=== PATIENT | female | born 1950 | race Caucasian/White ===

== ENCOUNTER → 2024-04-11 12:23 | Outpatient (CLI) | payer MEDICARE, SELFPAY ==
--- NOTE | 2024-04-11 12:27 | DI.MRI.S_ITS ---
PROCEDURE: MR LUMBAR SPINE WO CON INDICATIONS: LUMBAR STENOSIS / EVAL NEURO STRUCTURES TECHNIQUE: Noncontrast sagittal T1 spin echo and T2 fast echo, sagittal STIR, and T2 fast spin echo through the lumbar spine. In cases with scoliosis, additional coronal T2 fast spin echo may be performed. COMPARISON: None. FINDINGS: Image quality: Excellent. Alignment and Curvature: Mild dextrocurvature. Grade 1 anterolisthesis of L4 on L5 and L5 on S1. Grade 1 retrolisthesis of L1-L2 and L2 on L3. Bone Marrow: Multilevel degenerative endplate changes, most pronounced at L1-L2. Marrow is of normal overall signal. No acute vertebral body compression fractures. Spinal Cord: Conus medullaris terminates at the T12-L1 level. Visualized cord demonstrates normal signal and size. Paraspinous Soft Tissues: No paravertebral masses. T12-L1: Disc desiccation and mild disc height loss. Mild disc bulge. No central canal or neural foraminal stenosis. L1-L2: Disc desiccation is severe disc height loss. Diffuse disc bulge superimposed disc extrusion extending inferiorly. Mild central canal stenosis. Facet arthropathy. Moderate bilateral neural foraminal stenosis. L2-L3: Disc desiccation and moderate disc height loss. Diffuse disc bulge. Facet arthropathy. No significant central canal stenosis. Moderate left and mild right neural foraminal stenosis. L3-L4: Disc desiccation and moderate disc height loss. Diffuse disc bulge. Facet arthropathy and thickening of ligamentum flavum. Significant hypertrophy of the right facet joint. Severe central canal stenosis. Severe right and moderate left neural foraminal stenosis. L4-L5: Disc desiccation and mild disc height loss. Posterior disc bulge. Facet arthropathy. Epidural lipomatosis. Moderate central canal stenosis. Mild bilateral neural foraminal stenosis. L5-S1: Disc desiccation and diffuse disc bulge. Facet arthropathy. No significant central canal stenosis. Mild bilateral neural foraminal stenosis. IMPRESSION: 1. Multilevel degenerative changes of the lumbar spine as described above. 2. There is severe central canal stenosis at L3-L4. 3. Severe right neural foraminal stenosis at L3-L4. Multilevel mild and moderate neural foraminal stenosis at other levels. Dictated by: Pepe Lawrence M.D. on 04/11/2024 at 15:21 Approved by: Pepe Lawrence M.D. on 04/11/2024 at 15:25
== END ==
LOC: MRI 12:26
PROVIDERS: Referring Provider Orthopaedic Surgery Orthopaedic Surgery of the Spine; Visit Provider Orthopaedic Surgery Orthopaedic Surgery of the Spine
DX: M48.062 Spinal stenosis, lumbar region with neurogenic claudication (principal); M48.07 Spinal stenosis, lumbosacral region; M47.816 Spondylosis without myelopathy or radiculopathy, lumbar region; M47.817 Spondylosis without myelopathy or radiculopathy, lumbosacral region
CPT/HCPCS: 72148

== ENCOUNTER → 2024-05-15 13:09 | Outpatient (CLI) | payer MEDICARE, SELFPAY ==
--- NOTE | 2024-05-15 13:10 | DI.CT.S_ITS ---
PROCEDURE: CT LUMBAR SPINE WO CON INDICATIONS: SPINAL STENOSIS TECHNIQUE: Noncontrast 3 mm thick sections acquired from the T12 level to the sacrum. Sagittal and coronal reformats were constructed. For radiation dose reduction, the following was used: automated exposure control. COMPARISON: [facility], MR, MR LUMBAR SPINE WO CON, 04/11/2024, 12:35. FINDINGS: Image quality: Excellent. Bones: Grade 1 retrolisthesis of L1 on L2. Grade 1 anterolisthesis of L4 on L5. No acute vertebral body compression fractures. No suspicious lytic or blastic bony lesions. No pars defects. Bilateral sacroiliitis. Moderate, multilevel degenerative disc disease and facet arthrosis. Of note, there is severe spinal canal narrowing at L3-4. Findings have not significantly changed since 04/11/2024. Soft tissues: No retroperitoneal masses or hematomas. Visualized aorta is normal in caliber. IMPRESSION: Bilateral sacroiliitis, either degenerative or inflammatory. Multilevel degenerative disc disease and facet arthrosis, not significantly changed since comparison MRI. Dictated by: Eliezer Blum M.D. on 05/15/2024 at 16:19 Approved by: Eliezer Blum M.D. on 05/15/2024 at 16:25
== END ==
PROVIDERS: Referring Provider Orthopaedic Surgery Orthopaedic Surgery of the Spine; Visit Provider Orthopaedic Surgery Orthopaedic Surgery of the Spine
DX: M48.062 Spinal stenosis, lumbar region with neurogenic claudication (principal); M51.361 Other intervertebral disc degeneration, lumbar region with lower extremity pain only; M47.816 Spondylosis without myelopathy or radiculopathy, lumbar region; M43.16 Spondylolisthesis, lumbar region; M46.1 Sacroiliitis, not elsewhere classified
CPT/HCPCS: 72131

== ENCOUNTER 2024-05-31 07:26 | Day surgery (SDC) | payer MEDICARE, SELFPAY ==
[2024-05-22 12:10] VITALS: BMI 32.5
[2024-05-31] VITALS (19 sets, daily range): BP systolic 111–160; BP diastolic 57–108; PULSE 70–101; RESP 10–21; TEMP 36.4–36.7; O2SAT 9–99; BMI 33.5; BMI 34.0
--- NOTE | 2024-05-31 | PATH_ITS ---
[facility] Accession Number: [id number] No. of containers..01 Tissue . 01 Material submitted: . back - L3-4 RIGHT FACET CYST . 01 Diagnosis: L3-4 VERTEBRAL BODIES, RIGHT FACET CYST, EXCISION: Disc material and fibrocartilaginous tissue with severe degenerative changes, hemorrhage, and hemosiderin depostion. Features suggestive of hemorrhagic cyst, compatible with synovial cyst. Mineralized bone fragment and periosteal type fibroconnective tissue with degenerative changes and hemosiderin deposition. [facility] 06/06/2024 1153 Local . 01 Electronically signed: . Ann Bosch MD, Pathologist NPI- [id number] . 01 Gross description: . Received in formalin with two patient identifiers and L3-4 right facet cyst, are multiple aiken and orange-brown soft tissue fragments with no skin grossly identified aggregating to 2.4 x 2.0 x 0.6 cm. Filtered and submitted entirely in cassette A1. ([id number]) /LEXIE 06/01/2024 0925 Local . 01 Pathologist provided ICD-10: M71.30, M48.061 . 01 CPT . 255678 Specimen Comment: A courtesy copy of this report has been sent to [phone] Performed at: [address] [facility], [place], [place] [id number] MD Bernabe Fleming MD Phone: [phone]
--- NOTE | 2024-05-31 | DI.RAD.S_ITS ---
PROCEDURE: XR LUMBAR SPINE 2-3V INDICATIONS: TLIF L3-4,L4-5 TECHNIQUE: Fluoroscopic views of the lumbar spine were acquired. COMPARISON: None. FINDINGS: Intraoperative images demonstrate a L3-L4 and L4-L5 TLIF in progress. IMPRESSION: Intraoperative images of L3-L4 and L4-L5 TLIF. Please see the operative report for further details. Dictated by: Jose Francisco Bajwa M.D. on 05/31/2024 at 16:40 Approved by: Jose Francisco Bajwa M.D. on 05/31/2024 at 16:41
[2024-05-31] MEDS: ACETAMINOPHEN 325 MG TABLET 975 MG PO (07:56)
[2024-05-31] MEDS: LACTATED RINGERS 1,000 ML 42 ML IV ×2 (08:01→11:21)
[2024-05-31 08:24] LABS: Hematocrit 38.8 % (36-46); Hemoglobin 12.9 g/dL (12.0-16.0); Mean Corpuscular HGB Conc 33.2 % (30-36); Mean Corpuscular Hemoglobin 31.6 PG (26-34); Platelet Count 185 X10^3/uL (150-400); Red Blood Cell Count 4.09 X10^6/uL (4.0-5.2); Red Cell Distribution Width 13.6 % (11.6-14.8); White Blood Cell Count 8.1 X10^3/uL (4.5-11.0)
--- NOTE | 2024-05-31 08:38 | PM.PREOP ---
Pre-operative Note Interval Note History & Physical reviewed/Exam performed by Physician: Yes Changes to H&P: No
[2024-05-31] MEDS: CEFAZOLIN 2 GM/100 ML PREMIX 100 ML IV ×2 (08:50→17:06)
--- NOTE | 2024-05-31 09:11 | SUR.OPER ---
Prone on spine table, head in foam head support, padded chest and pelvic supports, gel pad at knees, lower legs supported by pillows; nipples, genitalia and toes free of pressure, arms secured on foam padded arm boards at <90 degrees abduction. Tape over blanket at thigh secured to table.
[2024-05-31] MEDS: BUPIVACAINE 0.25% (PF) 60 ML, EPINEPHrine 0.15 MG INJ (09:15)
[2024-05-31] MEDS: BUPIVACAINE LIPOSOME 266 MG/20 ML VIAL INJ (09:16)
--- NOTE | 2024-05-31 11:39 | PM.OP.1 ---
Operative Date/Time/Diagnoses Date of procedure: 05/31/24 Time of procedure: 08:45 Pre-op diagnosis: 1. L3-4, L4-5 spondylolisthesis 2. L3-4, L4-5 spinal stenosis with radiculopathy Post-op diagnosis: same Procedure & Clinicians Procedure: 1. L3-4, L4-5 Postero-lateral and posterior interbody fusion 2. L3-4, L4-5 interbody cage placement. 3. L3-4, L4-5 decompressive laminectomy with bilateral facetecomies 4. L3-4, L4-5 Posterior segmental instrumentation 5. [place] of bone marrow from iliac crest 6. Utilization of microsurgical technique and operating microscope 7. Utilization of robotic assisted navigation 8. Excisional biopsy of the right L3-4 synovial cyst Same procedure as scheduled: Yes Indications: Patient has been having chronic back pain and worsening lumbar radiculopathy. Patient was found to have L3-4 L4-5 anterolisthesis with spinal stenosis correlating with patient's symptoms. Patient failed multiple conservative management with worsening pain weakness and numbness in her lower extremity. Patient has been having difficulty performing activity of daily living. After discussing risks benefits of treatment options, patient elected proceed with surgery. Surgeon: Sunday Saul Molded Grid And Parts Inspector: Deepa Pritchard Click Yes if Unassisted: No Anesthesia Type: General Operative Notes Closure Type: primary Specimen(s): other (Right L3-4 facet cyst) Prosthetic devices, grafts, tissues, transplants, or devices: Globus CREO MIS screws, Rise cages Applied: catheter Estimated Blood Loss (mL): 50 Blood products transfused: none Procedure in detail: Patient was seen in the preoperative area. Risks and benefits of the surgery was discussed with the patient. Informed consent was obtained from the patient and placed in the chart. Surgical site was marked. Patient was taken to the operative room. General anesthesia was administered. Prophylactic antibiotic was given to the patient less than 30 min before the incision was made. Patient was placed into a prone position on the Robert table. Patient's back was then prepped and draped in the sterile fashion. Time-out was performed at this time. After patient was prepped and draped, patient's PSIS was palpated and marked bilaterally. Small 1 cm incision was made over the PSIS for placement of the reference probes. Two trocar was placed into the PSIS 1 on each side. The reference probe was attached to the trocar of the reference apparatus. At this time the C-arm imaging was used to confirm AP and lateral of L3, L4-L5 vertebrae and merged the C-arm imaging using the Taktio robotic navigation system with the CT of the lumbar spine. After successful merging was completed and confirmed, skin marker was used to marcy out the skin incision using the Taktio robotic arm. Bilateral incision was made at this time. Pre templated trajectory was used and guided using the Taktio robotic navigation system for bilateral L3 L4, L5 pedicle screw placement. This was done by using the robotic arm to guide the high-speed bur to make a cortical entry point. Next a drill was placed also using the robotic arm and guided using the navigation system drilling partially through bilateral L3, L4, L5 pedicles. Next L3, L4, L5 pedicle screws it was pre templated and measured was placed onto the power local az truck driver and inserted into the pedicles bilaterally. After all 6 screws were placed C-arm imaging was taken of both AP and lateral to confirm the placement. Excellent placement of the screws were confirmed and a matched precisely with the pre planned screw placement using the navigation system. MARs retractor was inserted using MoboTapivation guidence. Globus MARS retractors was placed inside the incision and docked onto the L3, L4 lamina. Using microsurgical technique and operating microscope, a L3, L4 laminectomy and L3-4, L4-5 facetectomy was performed using a Kerrison rongeur. The laminectomy and facetectomy was performed in order to decompress patient's cauda equina as well as the nerve roots exiting at the L3-4, L4-5 level. Patient was found have severe central stenosis, lateral recess and neural foramen stenosis which was fully decompressed after the laminectomy facetectomy. Patient was also found to have a large L3-4 synovial cyst on the right side. There significant amount of dark pigmentation surrounding and imbedded in the facet cyst. The tissue from the cyst was excised and sent off for pathology. More than 75% of the facets were removed during the process of decompression rendering L3-4, L4-5 level grossly unstable and required a fusion procedure at the same time. The disc space at L3-4, L4-5 was identified, and a total diskectomy was performed at L3-4, L4-5 level. The endplates were decorticated using a rasp and shaver. The total diskectomy and decortication was performed at L3-4, L4-5 level in order to to accomplish a L3-4, L4-5 fusion. The local bone from the laminectomy and facetectomy was saved for local bone grafting. After the total diskectomy and decortication was completed, Viacel bone graft material was combined with local bone that was harvested earlier. At this time, a separate skin is incision was made over the iliac crest on the left. A Jamshidi needle was inserted into the iliac crest through a separate skin incision. 5 cc of bone marrow aspiration was obtained through the separate skin incision using a Jamshidi needle from the iliac crest. The bone marrow aspiration was combined with local bone and the Viacel bone grafting material. The bone grafting material was placed into the L3-4, L4-5 interbody space along with expandable cages. One cage each was inserted into the L3-4 L4-5 interbody space along with bone graft material. The cage was expanded to its maximum height using the torque limiting screwdriver. The disc preparation as well as the cage insertion were also performed under navigation guidance. After the cage was placed, AP and lateral C-arm imaging was taken to confirm placement of the cage and excellent position was confirmed. Globus MARS retractor was inserted and docked onto the L3-4, L4-5 posterolateral gutter on the right side. Using the power drill, posterior-lateral decortication was performed at L3-4, L4-5 level until bleeding cortical bone was identified. The remaining bone grafting material was placed into the L3-4, L4-5 posterior lateral gutter he order to accomplish posterolateral fusion at the L3-4, L4-5 level. At this time the tulips were attached to the L3, L4-L5 pedicle screw shanks. After measuring the length of the rods, they were inserted into the tulips of the pedicle screws and locked in place using locking caps and torque limiting screwdriver bilaterally. Total 6 caps and 2 titanium rods was used in order to complete the posterior instrumentation construct. After all the hardware was placed, and confirmed with AP and lateral C-arm imaging, the wound was then irrigated with sterile normal saline and packed with Ray-Stella gauze for 3 min to accomplish hemostasis. After the gauze was removed the deep fascia was closed with #1 Vicryl suture. The subcutaneous layer was closed with 2-0 Vicryl. The skin was closed with skin deepa. Patient tolerated the procedure well. There were no complications. Neuro monitoring system was used to monitor patient's neurologic status throughout entire procedure. There was no disturbance of the neural monitoring signals throughout the case. The Operation could not have been safely performed without compromising the technical result or length of the procedure, without the assistance of a skilled social research assistant. The social research assistant was medically necessary for proper positioning, retraction and manipulation of instruments, proper exposure, surgical preparation, and manipulation of tissue. Complications: none Post-operative Condition: stable Disposition: PACU Plan for aftercare: Admit to inpatient hospital
[2024-05-31] MEDS: HYDROMORPHONE 1 MG INJ IV ×8 (11:57→13:14)
[2024-05-31] MEDS: hydrOXYzine HCL 25 MG TABLET PO (12:06)
[2024-05-31] MEDS: OXYCODONE IR 5 MG TABLET PO (12:37)
--- NOTE | 2024-05-31 12:53 | SUR.PHASEI ---
Dr. Emery notified that patient is still reporting elevated pain level after medicating. New orders pending.
[2024-05-31] MEDS: LORazepam 2 MG/ML INJ 0.25 MG IV (13:04)
--- NOTE | 2024-05-31 13:10 | SUR.PHASEI ---
report given to
[2024-05-31] MEDS: LACTATED RINGERS 1,000 ML 125 ML IV ×2 (14:00→17:06)
[2024-05-31] MEDS: HYDROMORPHONE 0.5 MG INJ IV (14:46)
--- NOTE | 2024-05-31 15:28 | OT.IPNOTE ---
Pt asleep and not ready for OT eval. Able to get prior level and home set-up from her .
--- NOTE | 2024-05-31 16:32 | PT-IP ANOTE ---
PT eval received and EMR reviewed. checked with nurse and stated that pt might be ready for PT and to check on pt. stated that pain meds was given ~ 1hour ago. checked on pt and spouse in room. pt in deep sleep and spouse wanting pt to just rest for now. agreed for PT to see tomorrow.
[2024-05-31] MEDS: OXYCODONE IR 10 MG TABLET PO ×2 (17:07→20:47)
[2024-05-31] MEDS: GABAPENTIN 300 MG CAPSULE PO (20:48)
[2024-05-31] MEDS: SENNOSIDES 8.6 MG TABLET 17.2 MG PO (20:48)
[2024-05-31] MEDS: DOCUSATE 100 MG CAPSULE PO (20:48)
[2024-06-01] MEDS: OXYCODONE IR 10 MG TABLET PO ×3 (00:52→16:20)
[2024-06-01] MEDS: CEFAZOLIN 2 GM/100 ML PREMIX 100 ML IV (00:52)
[2024-06-01] MEDS: LACTATED RINGERS 1,000 ML 125 ML IV (00:53)
[2024-06-01 05:42] LABS: Hematocrit 32.8 % (36-46); Hemoglobin 10.9 g/dL (12.0-16.0)
--- NOTE | 2024-06-01 07:53 | PM.PNPO.1 ---
Subjective Subjective Date Patient Seen: 06/01/24 Time Patient Seen: 07:53 Interval history: Pain is moderate to severe. No nausea or vomiting. No fever or chills. Exam Vital Signs (past 8 hours): Oxygen Delivery Method Nasal Cannula Oxygen Flow Rate 2 Narrative Exam Narrative: 73-year-old female resting comfortably in bed in no apparent distress. Neurovascular status is intact bilateral lower extremities. Const General: cooperative and comfortable Nutritional Appearance: average body habitus Orientation: alert Resp Effort & Inspection: normal respiratory effort and able to speak in complete sentences Objective Labs 06/01/24 05:31 Labs: Laboratory Results - last 24 hr 05/31/24 06/01/24 07:50 05:31 WBC 8.1 RBC 4.09 Hgb 12.9 10.9 L Hct 38.8 32.8 L MCV 95.0 MCH 31.6 MCHC 33.2 RDW 13.6 Plt Count 185 PFSH Medical History (Updated 05/22/24 @ 14:29 by Gretel Tubbs, RN) Wears hearing aid in both ears HTN (hypertension) HLD (hyperlipidemia) Spinal stenosis Surgical History (Updated 05/22/24 @ 14:28 by Gretel Tubbs, RN) H/O cataract extraction History of tonsillectomy History of cholecystectomy H/O: hysterectomy (~1988) H/O cervical spine surgery (10/2015) Social History household members: spouse Smoking Status: Former smoker alcohol intake: current Assessment & Plan Post-op Postoperative Procedures: Procedures Operation Date: 05/31/24 08:45 Actual Procedure Side Surgeon p L3-4, L4-5 TLIF with posterior instrumentation-Robot Sunday Saul MD Postoperative day: 1 Postoperative status: doing well Postoperative plan: routine post-op care Postoperative plan narrative: Mobilize with physical therapy, limit bending, twisting, lifting Multimodal pain management Disposition likely home today or tomorrow Quality VTE Deep Vein Thrombosis/Pulmonary Embolism Present on Admission: No
[2024-06-01 08:00] VITALS: BP 105/57; PULSE 84; RESP 18; TEMP 37; O2SAT 95
--- NOTE | 2024-06-01 09:03 | PT.IIE ---
Current Diagnoses Spondylolisthesis, lumbar region (05/31/24) Spinal stenosis, lumbar region with neurogenic claudication (05/31/24) Surgery Performed Operation Date: 05/31/24 08:45 Actual Procedures p L3-4, L4-5 TLIF with posterior instrumentation-Robot - Sunday Saul MD Surgical History (Last Updated 05/22/24 @ 14:28 by Gretel Tubbs, RN) H/O cataract extraction H/O cervical spine surgery (10/2015) H/O: hysterectomy (~1988) History of cholecystectomy History of tonsillectomy Medical History (Last Updated 05/22/24 @ 14:29 by Gretel Tubbs, RN) HLD (hyperlipidemia) HTN (hypertension) Spinal stenosis Wears hearing aid in both ears Physical Therapy Inpatient Evaluation/Re-Eval M1 PT/OT-IP Prior Functional Status Start: 05/31/24 15:29 Freq: NEEDED Status: Active Protocol: Document 06/01/24 07:55 MB (Rec: 06/01/24 09:03 MB [id number]) Medical Review Prior Functional Status Medical History Reviewed Yes Communication I Mobility and Gait Occasional use of 4ww inside and outside per pt's . Activities of Daily Living and IADL's Pt's states havin to asisst with socks and IADL needs. Social History Household Members spouse Living Arrangements House Number of Floors (Floors) One Floor Number of Stairs To Enter/Railing? 2 steps with right rail going up. They has a daylight basement that she will not be using. 1 step going up without rail. Home Environment Standard Height Toilet,Walk in Shower Home Equipment Four Wheel Walker,Straight Cane,Raised Toilet Seat w/ Armrests,Shower Seat without Backrest,Hand Held Shower,Long Handled Shoe Horn,Sweep Press Operator Additional Social History Comment Pt states he is physically capable to be able to assist ot for her needs. M2 PT-IP Current Condition Start: 06/01/24 07:35 Freq: NEEDED Status: Active Protocol: Document 06/01/24 07:55 MB (Rec: 06/01/24 09:03 MB [id number]) Physical Therapy Current Condition Current Condition Evaluation Date 06/01/24 Treatment Diagnosis L3-5 TLIF M3 PT-IP Subjective Start: 06/01/24 07:35 Freq: NEEDED Status: Active Protocol: Document 06/01/24 07:55 MB (Rec: 06/01/24 09:03 MB [id number]) Subjective Physical Therapy Visit Type Type Initial Evaluation Visit Start Time 07:55 Visit Stop Time 08:30 Number of SHANK SKINNER Visits 0 Physical Therapy Visit Comments Patient Comments Pt is agreeable to PT and is ready to get OOB. Therapy Pain Assessment Pain When Pain Assessed At Rest Pain Present Pain Present Pain Reported Location Left hip Intensity 8 Scale Used Numeric (0 - 10) M4 PT-IP Mobility and Gait Start: 06/01/24 07:35 Freq: NEEDED Status: Active Protocol: Document 06/01/24 07:55 MB (Rec: 06/01/24 09:03 MB [id number]) PT-Bed Mobility Assessment Rolling Type of Rolling Log Rolling,Roll to Left Level of Assist Contact Guard Assistance Supine to Sit Supine to Sit Contact Guard Assistance,1 Person Assistance,Head of Bed Elevated,Bedrails Scooting Scooting to Edge of Bed Contact Guard Assistance PT-Transfer Assessment Sit to and From Stand Sit to and from Stand Minimal Assistance,1 Person Assistance,Use of Upper Extremities Equipment Transfer Assistive Device Gait Belt,Front Wheeled Walker Orthotic/Prosthetic Devices or Brace: No Transfers Transfer Destination Chair Transfer Technique Stepping Transfer Ability Level of Assist Minimal Assistance,1 Person Assistance,Use of Upper Extremities Comments Mobility Comments Cues for hand placement and pt moves slowly. O2 sats on RA are in the mid 90s (94%) at rest in supine and once sitting up in chair. BP and HR in LUE: supine 137/71,95; standing 123/72, 89; standing 1' 126/66, 89. Pt does report some light-headedness with mobility and she moves slowly. Pt uses rail and reaches for chair and PT also brings up bottom bed rail for bed mobility: increased time and effort and she requires cues for safe hand placement for transfer. Gait Assessment Gait Gait Assistance Required: Minimum Assistance Distance (Feet) 2 Assistive Devices Assistive Device Gait Belt,Front Wheeled Walker Gait Deviations General Gait Pattern Antalgic,Decreased Stride Length,Decreased Feet Clearance,Flexed Trunk,Wide Based Gait Factors Limiting Gait Function Factors Limiting Gait Function Decreased Activity Tolerance, Pain,Poor Balance PT-Balance Assessment Sitting Balance and Reactions Static Sitting Balance Ability Fair Dynamic Sitting Balance Ability Fair Standing Balance and Reactions Static Standing Balance Ability Fair Dynamic Standing Balance Ability Fair Device Used RW M5 PT-IP Objective Assessments Start: 06/01/24 07:35 Freq: NEEDED Status: Active Protocol: Document 06/01/24 07:55 MB (Rec: 06/01/24 09:03 [id number]) Orientation Orientation/Cognition Level of Alertness Alert Orientation Name,Age,Birthday,Month,Date, Year,Situation Language Function Ability Hard of Hearing Safety Awareness Decreased Safety Awareness Comments Pt has some confusion about location today and requires cues. States she usually doesn 't come to this hospital and states [place] and then [place] Range of Motion Upper Extremity ROM Impairments Defer to OT Lower Extremity ROM Assessment Within Functional Limits Strength Lower Extremity Strength Assessment Left Impaired Knee Left knee extension 3+/5 Comments Strength Comments Pt does not tolerate MMT hips today Coordination Assessment Gross Coordination Gross Coordination Impaired Assessment Coordination Comments Slow mobility and coordination today Sensation Assessment Sensation Gross Sensation WNL Muscle Tone Muscle Tone WNL Yes M6 PT-IP Treatment Start: 06/01/24 07:35 Freq: NEEDED Status: Active Protocol: Document 06/01/24 07:55 MB (Rec: 06/01/24 09:03 [id number]) Physical Therapy Treatment Exercises Exercises Ankle Pumps Education Education Provided Precautions,Post-Op Packet, Safety Other Treatments Other Treatment Performed Education and practice in log rolling and reviewed folder and back precautions with pt and then with pt and at end of eval M7 PT-IP Assessment and Plan Start: 06/01/24 07:35 Freq: NEEDED Status: Active Protocol: Document 06/01/24 07:55 MB (Rec: 06/01/24 09:03 [id number]) PT Summary Assessment and Plan Potential Rehabilitation Potential Good Status of Condition at Evaluation Evolving Summary Impairments Pain,Strength,Balance, Coordination,Cognition,Bed Mobility,Transfers,Gait, Activity Tolerance Progress Towards Goals Slow Progress due to Pain Assessment Summary Pt is a 73 y/o who is POD1 TLIF. She reports left hip pain and denies sensory changes today. She presents with left LE weakness. O2 sats on RA remain in the 90s and she has light-headedness with mobility. Her BP does not drop into orthostatic range, but it does drop today. She presents with slow mobility and requires cues, CGA and heavy use of rails for bed mobility and min A to take a few steps today. arrives during assessment. Recommend up to chair with nsg for meals and toileting. Goals Bed Mobility Goal Independent Transfer Goal Independent,Front Wheeled Walker,Four Wheeled Walker Gait Goal Independent,Front Wheel Walker ,Four Wheel Walker Gait Distance 100 Other Goals Pt will ascend 1 platform step with LRAD and CGA or 2 steps with rail, LRAD and CGA to allow safe home entrance. Pt will recall 3/3 back precautions. Days to Meet Goals 3 Frequency of Treatment Frequency Of Treatment Twice a Day Treatment Plan Physical Therapy Treatment Plan Bed Mobility Training,Transfer Training,Gait Training, Therapeutic Exercise,Balance Retraining,Post Op Education, Discharge Planning,Hot or Cold Pack,Neuromuscular Re-ed, Coordination Retraining,Manual Therapy Precautions Lumbar Precautions Log Roll,No Twisting,Limit Bending,Lifting Restriction of 10 lbs,Gait Belt above Incisional Area Recommendations To Nursing Amount of Assist Needed 1 Person Assist Discharge Recommendations PT Discharge Recommendations Home with Assistance, Outpatient PT Transportation Needs at Discharge Private Vehicle
[2024-06-01] MEDS: hydroCHLOROthiazide 25 MG TABLET PO (09:37)
[2024-06-01] MEDS: allopurinoL 100 MG TABLET PO (09:37)
[2024-06-01] MEDS: atenoloL 25 MG TABLET PO (09:37)
[2024-06-01] MEDS: DOCUSATE 100 MG CAPSULE PO ×2 (09:37→20:41)
[2024-06-01] MEDS: OXYCODONE IR 5 MG TABLET PO (09:38)
[2024-06-01] MEDS: ATORVASTATIN 20 MG TABLET 40 MG PO (09:38)
--- NOTE | 2024-06-01 11:33 | PC.NURSE ---
Addendum entered by Michelle Lynne R.N. 06/01/24 19:21: Patient gets to groggy with 10mg of po oxycodone, she has also been confused today. She states that she only takes 25mg of tramadol at home. She was only given tylenol tonight and an ice pack to her back and this has been helpful. Patient knows that she had surgery and she knows where she is. just left, passed onto shift commander RN to just maybe give tylenol. Original Note: Patient is alert and oriented x4, dressing to back is cdi. She was having a hard time log rolling in bed, OT in room working with patient.
--- NOTE | 2024-06-01 13:25 | PT.IPTN ---
Current Diagnoses Spondylolisthesis, lumbar region (05/31/24) Spinal stenosis, lumbar region with neurogenic claudication (05/31/24) Surgery Performed Operation Date: 05/31/24 08:45 Actual Procedures p L3-4, L4-5 TLIF with posterior instrumentation-Robot - Sunday Saul MD Physical Therapy Treatment Note M2 PT-IP Current Condition Start: 06/01/24 07:35 Freq: NEEDED Status: Active Protocol: Document 06/01/24 07:55 MB (Rec: 06/01/24 09:03 MB [id number]) Physical Therapy Current Condition Current Condition Evaluation Date 06/01/24 Treatment Diagnosis L3-5 TLIF M3 PT-IP Subjective Start: 06/01/24 07:35 Freq: NEEDED Status: Active Protocol: Document 06/01/24 13:58 TS (Rec: 06/01/24 14:17 TS [id number]) Subjective Physical Therapy Visit Type Type Treatment Note Visit Start Time 13:25 Visit Stop Time 13:55 Number of ROUND UP RING HAND Visits 1 Physical Therapy Visit Comments Patient Comments Pt found resting in the chair, she is agreeable to PT. Therapy Pain Assessment Pain When Pain Assessed During Mobility Pain Present Pain Present Pain Reported Location Left hip Intensity 5 Scale Used Numeric (0 - 10) M4 PT-IP Mobility and Gait Start: 06/01/24 07:35 Freq: NEEDED Status: Active Protocol: Document 06/01/24 13:58 TS (Rec: 06/01/24 14:17 TS [id number]) PT-Bed Mobility Assessment Rolling Type of Rolling Log Rolling,Roll to Left Level of Assist Contact Guard Assistance Sit to Supine Sit to Supine Minimal Assistance,1 Person Assistance PT-Transfer Assessment Sit to and From Stand Sit to and from Stand Minimal Assistance,Moderate Assistance,1 Person Assistance ,Use of Upper Extremities Equipment Transfer Assistive Device Gait Belt,Front Wheeled Walker Orthotic/Prosthetic Devices or Brace: No Comments Mobility Comments Spouse dons gait belt prior to mobility. STS with FWW Min- ModA, pt requires cues for STS technique. She ambulates ~10' to the restroom with a slow step to gait, pt sat on toilet , OT in room assisting with pericare. STS from the toilet ModA from spouse. Pt ambulates back to the chair, reports feeling weak. BP in sitting 100/78. Pt requests back to the bed. Sit to supine Carrie with spouse assisting LE's into bed. Pt recalls 1/3 spinal precautions(no twisting ). Pt was left in the bed, all needs met. Gait Assessment Gait Gait Assistance Required: Minimum Assistance Distance (Feet) 20 Assistive Devices Assistive Device Gait Belt,Front Wheeled Walker Orthotic/Prosthetic Devices or Brace: No Gait Deviations General Gait Pattern Antalgic,Decreased Stride Length,Decreased Feet Clearance,Flexed Trunk,Wide Based Gait Factors Limiting Gait Function Factors Limiting Gait Function Decreased Activity Tolerance, Pain,Poor Balance PT-Balance Assessment Sitting Balance and Reactions Static Sitting Balance Ability Fair Dynamic Sitting Balance Ability Fair Standing Balance and Reactions Static Standing Balance Ability Fair Dynamic Standing Balance Ability Fair Device Used RW M5 PT-IP Objective Assessments Start: 06/01/24 07:35 Freq: NEEDED Status: Active Protocol: Document 06/01/24 07:55 MB (Rec: 06/01/24 09:03 MB [id number]) Orientation Orientation/Cognition Level of Alertness Alert Orientation Name,Age,Birthday,Month,Date, Year,Situation Language Function Ability Hard of Hearing Safety Awareness Decreased Safety Awareness Comments Pt has some confusion about location today and requires cues. States she usually doesn 't come to this hospital and states [place] and then [place] Range of Motion Upper Extremity ROM Impairments Defer to OT Lower Extremity ROM Assessment Within Functional Limits Strength Lower Extremity Strength Assessment Left Impaired Knee Left knee extension 3+/5 Comments Strength Comments Pt does not tolerate MMT hips today Coordination Assessment Gross Coordination Gross Coordination Impaired Assessment Coordination Comments Slow mobility and coordination today Sensation Assessment Sensation Gross Sensation WNL Muscle Tone Muscle Tone WNL Yes M6 PT-IP Treatment Start: 06/01/24 07:35 Freq: NEEDED Status: Active Protocol: Document 06/01/24 13:58 TS (Rec: 06/01/24 14:17 TS [id number]) Physical Therapy Treatment Education Education Provided Precautions,Post-Op Packet, Safety M7 PT-IP Assessment and Plan Start: 06/01/24 07:35 Freq: NEEDED Status: Active Protocol: Document 06/01/24 13:58 TS (Rec: 06/01/24 14:17 TS [id number]) PT Summary Assessment and Plan Potential Rehabilitation Potential Good Summary Impairments Pain,Strength,Balance, Coordination,Cognition,Bed Mobility,Transfers,Gait, Activity Tolerance Progress Towards Goals Slow Progress due to Activity Tolerance Assessment Summary Pt is making slow progress with her mobility. She requires Min-ModA for STS. She progressed her gait to ~2x10' with FWW. Pt reports feeling weak and her BP did drop in standing. PT is recommending home w/ 18/01 assist and HHPT. Goals Bed Mobility Goal Independent Transfer Goal Independent,Front Wheeled Walker,Four Wheeled Walker Gait Goal Independent,Front Wheel Walker ,Four Wheel Walker Gait Distance 100 Other Goals Pt will ascend 1 platform step with LRAD and CGA or 2 steps with rail, LRAD and CGA to allow safe home entrance. Pt will recall 3/3 back precautions. Days to Meet Goals 3 Frequency of Treatment Frequency Of Treatment Twice a Day Treatment Plan Physical Therapy Treatment Plan Bed Mobility Training,Transfer Training,Gait Training, Therapeutic Exercise,Balance Retraining,Post Op Education, Discharge Planning,Hot or Cold Pack,Neuromuscular Re-ed, Coordination Retraining,Manual Therapy Precautions Lumbar Precautions Log Roll,No Twisting,Limit Bending,Lifting Restriction of 10 lbs,Gait Belt above Incisional Area Recommendations To Nursing Amount of Assist Needed 1 Person Assist Discharge Recommendations PT Discharge Recommendations Home with 18/01 Assist Available,Home Health Equipment Needed for Home Before FWW Discharge Transportation Needs at Discharge Private Vehicle
--- NOTE | 2024-06-01 13:50 | OT.IP.EVAL ---
Current Diagnoses Spondylolisthesis, lumbar region (05/31/24) Spinal stenosis, lumbar region with neurogenic claudication (05/31/24) Surgery Performed Operation Date: 05/31/24 08:45 Actual Procedures p L3-4, L4-5 TLIF with posterior instrumentation-Robot - Sunday Saul MD Past Medical History (Last Updated 05/22/24 @ 14:29 by Gretel Tubbs, RN) HLD (hyperlipidemia) HTN (hypertension) Spinal stenosis Wears hearing aid in both ears Surgical History (Last Updated 05/22/24 @ 14:28 by Gretel Tubbs, RN) H/O cataract extraction H/O cervical spine surgery (10/2015) H/O: hysterectomy (~1988) History of cholecystectomy History of tonsillectomy Occupational Therapy Inpatient Evaluation/Re-Eval M1 PT/OT-IP Prior Functional Status Start: 05/31/24 15:29 Freq: NEEDED Status: Active Protocol: Document 06/01/24 14:02 [facility] (Rec: 06/01/24 14:21 [facility] [id number]) Medical Review Prior Functional Status Medical History Reviewed Yes Communication I Mobility and Gait Occasional use of 4ww inside and outside per pt's . Activities of Daily Living and IADL's Pt's states having to assist with socks and IADL needs. Social History Household Members spouse Living Arrangements House Number of Floors (Floors) One Floor Number of Stairs To Enter/Railing? 2 steps with right rail going up. They has a daylight basement that she will not be using. 1 step going up without rail. Home Environment Standard Height Toilet,Walk in Shower Home Equipment Four Wheel Walker,Straight Cane,Raised Toilet Seat w/ Armrests,Shower Seat without Backrest,Hand Held Shower,Long Handled Shoe Horn,Cushion Filler Additional Social History Comment Pt states he is physically capable to be able to assist ot for her needs. M2 OT-IP Current Condition Start: 05/31/24 15:29 Freq: Status: Active Protocol: Document 06/01/24 14:02 [facility] (Rec: 06/01/24 14:21 [facility] [id number]) Occupational Therapy Current Condition Current Condition Evaluation Date 06/01/24 Treatment Diagnosis S/P L3-4, L4-5 TLIF Diagnosis Onset Date 12/4/24 Post Operative Precautions Lumbar Precautions Log Roll,No Twisting,Limit Bending,Lifting Restriction of 10 lbs,Gait Belt above Incisional Area M3 OT- IP Subjective and Pain Start: 05/31/24 15:29 Freq: Status: Active Protocol: Document 06/01/24 14:02 [facility] (Rec: 06/01/24 14:21 [facility] [id number]) OT- Subjective Occupational Therapy Visit Type Type Initial Evaluation Visit Start Time 13:25 Visit Stop Time 13:50 Occupational Therapy Visit Comments Patient Comments Pt wanting to use the bathroom and get back to bed. Patient/Caregiver Goals To go home. OT Pain Assessment Pain When Pain Assessed At Rest Pain Present Pain Present Pain Reported Location Left hip Intensity 5 Scale Used Numeric (0 - 10) M4 OT- IP ADL's Start: 05/31/24 15:29 Freq: Status: Active Protocol: Document 06/01/24 14:02 [facility] (Rec: 06/01/24 14:21 [facility] [id number]) OT ADL-Oral Care Comments Oral Care Comments Educated best to spit into a cup or hinge at her hips to best follow her back precautions. OT ADL-Dressing General Eval Lower Body Dressing Ability Moderate Assistance Comments OT Dressing Comments Assist to help pull the brief in the back. OT ADL-Toileting General Evaluation Toileting Ability Moderate Assistance Comments OT Toileting Comments Pt able to hinge at her hips to wipe and will need assist after a bowel movement. Spoke of use of wipe, get a BSC , and use of pads/briefs. OT ADL-Bathing Comments OT Bathing Comments Pt will need assist and also benefit from a bath aid at home. M5 OT- IP IADL's Start: 05/31/24 15:29 Freq: Status: Active Protocol: Document 06/01/24 14:02 [facility] (Rec: 06/01/24 14:21 [facility] [id number]) OT-Instrumental Activities of Daily Living Home Safety Awareness Home Safety Comments Pt a little groggy and tired and will benefit from assist at home. M6 OT- IP Functional Cognition Start: 05/31/24 15:29 Freq: Status: Active Protocol: Document 06/01/24 14:02 [facility] (Rec: 06/01/24 14:21 [facility] [id number]) Cognitive Factors Limiting Selfcare Function Cognitive Ability Level of Alertness Alert Patient Orientation Name,Place,Situation Attention Span Ability Capable of Focused Attention, Capable of Sustained Attention Ability to Follow Commands Able to Follow One Step Commands with Increased Time, Able to Follow One Step Commands with Repetition Cognitive Comments Cognitive Assessment Comments Pt able to follow commands but needing vc to incorporate her back precautions for mobility and ADL needs and FWW safety. OT- Vision and Hearing OT- Hearing Assessment OT- Hearing Assessment Hearing Impaired,Use of Hearing Aids OT- Vision Assessment Visual Acuity Glasses All The Time Visual Attentiveness WFL Occular Pursuits WFL M7 OT- IP Mobility and Balance Start: 05/31/24 15:29 Freq: Status: Active Protocol: Document 06/01/24 14:02 [facility] (Rec: 06/01/24 14:21 [facility] [id number]) OT- Bed Mobility Assessment Sit to Supine Sit to Supine Assist Moderate Assistance OT-Transfer Assessment Sit to and From Stand Sit to and from Stand Moderate Assistance Transfers Transfer Ability Minimal Assistance Technique Transfer Destination Bed,Chair,Toilet Comments Mobility Comments Assist to help get her legs into bed and MIN/MODA to stand to the FWW. Able to initiate caregiver training with her . He was able to assist to walk into and out of the bathroom. OT- Balance Assessment Sitting Balance and Reactions Static Sitting Balance Ability Good Dynamic Sitting Balance Ability Good Standing Balance and Reactions Static Standing Balance Ability Fair Dynamic Standing Balance Ability Fair M8 OT- IP Objective Assessments Start: 05/31/24 15:29 Freq: Status: Active Protocol: Document 06/01/24 14:02 [facility] (Rec: 06/01/24 14:21 [facility] [id number]) OT Strength Upper Extremity Strength Assessment Within Functional Limits M9 OT- IP Assessment and Plan Start: 05/31/24 15:29 Freq: Status: Active Protocol: Document 06/01/24 14:02 [facility] (Rec: 06/01/24 14:21 [facility] [id number]) OT Summary Assessment and Plan Potential Rehabilitation Potential Good Analytic Complexity at Evaluation Low Summary OT Impairments Pain,Strength,Balance, Functional Mobility,Grooming, Dressing,Toileting,Bathing, Toilet Transfers,Shower Transfers,Activity Tolerance Progress Towards Goals Slow Progress due to Pain,Slow Progress due to Activity Tolerance Assessment Summary Pt low complexity and main barriers are decreased activity tolerance, pain, steps, and now needing assist for all ADl and mobility needs . Pt's has initiated caregiver training. Pt to go home with 24/7 assist and home health including bath aid when medically stable. Pt will benefit from getting a FWW. Goals Self-Feeding Goal Independent Grooming Goal Independent Dressing Goal Minimal Assistance Toileting Goal Minimal Assistance Bathing Goal Minimal Assistance Toilet Transfer Goal Standby Assistance Shower Transfer Goal Standby Assistance Days to Meet Goals 7 Frequency of Treatment Other frequency 5x/week Treatment Plan OT Treatment Plan ADL Training,Functional Mobility,Patient/Family Education,Discharge Planning Discharge Recommendations OT Discharge Recommendations Home with 24/7 Assist Available,Home Health Transportation Needs at Discharge Private Vehicle
--- NOTE | 2024-06-01 15:22 | CM.DANOTE ---
Patient is a 73 yo female who was admitted on 05/31/24 for TLIF. Pt has [facility] for insurance and her PCP is Cally Elam at [facility]. EMR was reviewed. Per Emeka PA, pt tolerated procedure well and had some moderate to severe pain and to work with PT/OT today for possible d/c home tomorrow. Per PT/OT, recommend home with spouse and HH and requested FWW order. SW met bedside with pt and spouse and explained role and they confirm they live at home in [place] and both are quite active and indep at baseline and pt has a cane at home but does not typically use it. Pt still drives and denies any hx of HH or SNF. Pt and spouse agreeable to HH and SW explained services and frequency and provided HH Choice list and no preference on HH agencies that cover [place]. Based on [place] location and pt's [facility] insurance, referral made to [facility] and they confirm they can accept for HH RN/PT/OT/REGISTERED NURSE FETAL. F2F done but not sent yet. Plan: SW to follow for plan of d/c home with spouse assist tomorrow and new [facility] referral made. SW to fax F2F, HH orders, and d/c summ to [facility] at d/c. CLYDE Dang Discharge Planning/Care Management CM Discharge Assessment Start: 06/01/24 15:17 Freq: Status: Active Protocol: Document 06/01/24 15:21 BF (Rec: 06/01/24 15:22 BF [id number]) Discharge Planning Assessment Assigned Lead Dental Assistant CLYDE Connell DPOA/Assigned Designee Name spouse Ryan Contact Information [phone] Advance Directives? No Advance Directives on File No History Provided By Patient,Significant Other, Medical Record Has Patient been admitted in last 30 No days? Prior Living Arrangements House Household Members spouse Type of transporation used prior to Drives own vehicle admit Independent with ADL's Yes Is patient alert and oriented? Yes Caregiver for Another No Community Services used prior to Physical Therapy admission: DME Already Rented / Owned FWW / Walker Patient/Family Preference Home with Home Health Barriers to Discharge No Discharge Plan Home with Home Health Community Services Physical Therapy,Occupational Therapy,Home Health Aid,Home Health Nurse Transportation Arrangement spouse will transport home Referrals Initiated Home Health If patient plan is home with home health Yes : Has signed face to face form been completed? Medicare Choice List Provided Yes Medicare choice list reviewed on patient,family electronic tablet with SNF/HH Preference [facility] Whiteboard Updated in Patient Room with Yes name and ext. # of Lead Dental Assistant Review Status In Process Please Provide Date Initial DC 06/01/24 Assessment Was Performed Next Review Type Continued Stay Review Pre-Anesthesia Assessment Start: 05/22/24 12:10 Freq: Status: Active Protocol: Document 05/22/24 12:10 LB (Rec: 05/22/24 12:19 LB [id number]) Pre-Anesthesia Assessment PAC Comment 05/22/24 Phone assessment. Patient Information Reviewed Via Phone Assessment Assessment Completed With Patient Diagnostic Results BMP/CMP Comment 04/26/24 outside results. Seen Specialist in Last 12 Months Yes Specialist Seen Orthopedist Primary Language Hungarian Preferred Language Hungarian Cmm Programmer Required No Height 157.48 cm Weight 80.739 kg Body Mass Index (BMI) 32.5 Hearing Ability Use of Hearing Aid Visual Assist Glasses Dentition Type Teeth, Natural Present Comment Bilat hearing aids, glasses for reading. Hx Anesthesia Reactions No Hx Family Anesthesia Reaction No Hx Malignant Hyperthermia No Hx Blood Transfusions No Anesthesia Review Requested No Circle Shear Operator No alcohol intake current Smoking Status Former smoker how long ago did patient quit smoking Quit 1979. Substance Use Type does not use Pain Present Pain Reported Musculoskeletal Symptoms Back Pain,Difficulty Walking, Radiating Pain into Limb History of Falling (Recent or History of No ) Patient is completely paralyzed or No completely immobile Prosthesis or Orthotic Device Cane,Front Wheel Walker Mental Status Oriented to own ability Comment Will bring walker. Is patient on oxygen? No Does patient have TRUJILLO/SOB No Hx Sleep Apnea No Currently Taking a Beta Luly Yes: Atenolol 25mg daily. Can You Climb a Flight of Stairs Without Yes SOB Hx Chest Pain No Hx SOB No Hx Syncope or Dizziness Yes: Postural dizziness. 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 Chronic UTI No Bladder Pattern Nocturia Urinary Catheter Present No Hx Urinary Self Catheterization No Diabetes No Patient No Lactating No Hx Drug Resistant Organism No Presence of External or Internal Medical Yes: Bilat IOL, neck hardware. Devices Have you had any close contact with No someone diagnosed with COVID-19? Are you experiencing any of these No symptoms symptoms? Comment Denies covid last 2 months. Marital Status Lives With spouse Current Living Arrangements House Number of Floors (Floors) Two Floors Number of Stairs To Enter/Railing? 2 steps with railing to enter. Support System Spouse Does the Patient Have Assistance After Yes Surgery Patient Discharge Plan Description Return Home Additional comment Unsure LOS. Feels Safe in Current Environment Yes Do you have a plan to hurt yourself or No Plan others? Do You Have Any Spiritual Beliefs That No May Affect Your HC Choices? Do You Have Any Cultural Practices That No May Affect Your HC Choices? Emergency Contact Name Ryan Harper - Emergency Contact Advance Directives? No PAC Instructions Assistance for 24 hours post- op,Durable medical equipment, Medications to take/avoid, Nasal antibiotic,No ETOH/ petroleum product on skin DOS, NPO,Post-op transportation,Pre -surgical wash,Sensory aids, Sturdy shoes/comfortable clothes,Do not bring valuables and remove jewelry
[2024-06-01] MEDS: ACETAMINOPHEN 325 MG TABLET 650 MG PO (17:58)
[2024-06-01] MEDS: SENNOSIDES 8.6 MG TABLET 17.2 MG PO (20:41)
[2024-06-01 21:41] VITALS: BP 114/76; PULSE 80; RESP 18; TEMP 36.8; O2SAT 93
[2024-06-02] MEDS: GABAPENTIN 300 MG CAPSULE PO ×2 (00:16→20:06)
--- NOTE | 2024-06-02 06:12 | PC.NURSE ---
Patient A/O x 4, mildly confused. Desats to high 80's while sleeping, placed on 2 L O2 via nasal cannula, now 95% on 2L. Up to bedside commode through the night with areli HAJI FWW. Sleeping at this time.
--- NOTE | 2024-06-02 08:17 | P.PN_ITS ---
Subjective Subjective Date Patient Seen: 06/02/24 Time Patient Seen: 08:18 Interval history: patient states she does not have much pain or discomfort. Denies any new numbness or tingling in her lower extremities. Patient has been present in the room. States that the patient only worked with physical therapy once yesterday. He noted that the patient had difficulty with ambulation and going up and down stairs. All stated that Occupational therapy worked with the patient and was concerned about upper extremity strength. Exam Vital Signs (past 8 hours): Fraction of Inspired Oxygen 97 Oxygen Delivery Method Nasal Cannula Oxygen Flow Rate 2 Narrative Exam Narrative: 4/5 strength in hip flexors, quadriceps, hamstrings, DF, PF, EHL bilaterally. Sensation to light touch intact throughout BLE. Calves soft, compressible, nontender. ?Dressing placed intraoperatively CDI. Resp Effort & Inspection: normal respiratory effort and able to speak in complete sentences Objective Labs 06/01/24 05:31 [facility] Medical History (Updated 05/22/24 @ 14:29 by Gretel Tubbs, RN) Wears hearing aid in both ears HTN (hypertension) HLD (hyperlipidemia) Spinal stenosis Surgical History (Updated 05/22/24 @ 14:28 by Gretel Tubbs, RN) H/O cataract extraction History of tonsillectomy History of cholecystectomy H/O: hysterectomy (~1988) H/O cervical spine surgery (10/2015) Social History household members: spouse Smoking Status: Former smoker alcohol intake: current Assessment & Plan Post-op Postoperative Procedures: Procedures Operation Date: 05/31/24 08:45 Actual Procedure Side Surgeon p L3-4, L4-5 TLIF with posterior instrumentation-Robot Sunday Saul MD Postoperative day: 2 Postoperative plan narrative: continue to work with physical and occupational therapy to assist with strength conditioning. Patient requires to go up at least 2 stairs to get into her home. Multimodal pain control. SCDs on when resting in bed. Limited twisting bending and lifting more than 10 lb. Re-evaluate tomorrow to be able to discharge home with home health or to SNF. Time Spent With Patient Time with patient: 15-24 minutes Quality VTE Deep Vein Thrombosis/Pulmonary Embolism Present on Admission: No
[2024-06-02] MEDS: ACETAMINOPHEN 325 MG TABLET 650 MG PO ×2 (08:55→14:59)
[2024-06-02] MEDS: allopurinoL 100 MG TABLET PO (08:56)
[2024-06-02] MEDS: ATORVASTATIN 20 MG TABLET 40 MG PO (08:56)
[2024-06-02] MEDS: hydroCHLOROthiazide 25 MG TABLET PO (08:56)
[2024-06-02] MEDS: DOCUSATE 100 MG CAPSULE PO ×2 (08:56→20:07)
[2024-06-02 09:00] VITALS: BP 131/60; PULSE 82; RESP 18; TEMP 36.6; O2SAT 94
[2024-06-02] MEDS: atenoloL 25 MG TABLET PO (09:28)
--- NOTE | 2024-06-02 10:26 | PC.NURSE ---
Patient is still having some confusion and she is groggy. She has not had any oxycodone since 1629. Patient was given tylenol and she sitting up in her recliner.
--- NOTE | 2024-06-02 10:40 | PT.IPTN ---
Current Diagnoses Spondylolisthesis, lumbar region (05/31/24) Spinal stenosis, lumbar region with neurogenic claudication (05/31/24) Surgery Performed Operation Date: 05/31/24 08:45 Actual Procedures p L3-4, L4-5 TLIF with posterior instrumentation-Robot - Sunday Saul MD Physical Therapy Treatment Note M2 PT-IP Current Condition Start: 06/01/24 07:35 Freq: NEEDED Status: Active Protocol: Document 06/01/24 07:55 MB (Rec: 06/01/24 09:03 MB [id number]) Physical Therapy Current Condition Current Condition Evaluation Date 06/01/24 Treatment Diagnosis L3-5 TLIF M3 PT-IP Subjective Start: 06/01/24 07:35 Freq: NEEDED Status: Active Protocol: Document 06/02/24 11:01 TS (Rec: 06/02/24 11:11 TS [id number]) Subjective Physical Therapy Visit Type Type Treatment Note Visit Start Time 10:40 Visit Stop Time 11:00 Number of MILLER HEAD WET PROCESS Visits 2 Physical Therapy Visit Comments Patient Comments Pt found resting in the chair, she is agreeable to PT. Therapy Pain Assessment Pain When Pain Assessed During Mobility Pain Present Pain Present Pain Reported M4 PT-IP Mobility and Gait Start: 06/01/24 07:35 Freq: NEEDED Status: Active Protocol: Document 06/02/24 11:01 TS (Rec: 06/02/24 11:11 TS [id number]) PT-Transfer Assessment Sit to and From Stand Sit to and from Stand Contact Guard Assistance,1 Person Assistance Equipment Transfer Assistive Device Gait Belt,Front Wheeled Walker Orthotic/Prosthetic Devices or Brace: No Comments Mobility Comments Pt recalls 1/3 spinal precautions. STS with FWW CGA. Pt ambulates ~100'SBA with FWW, reports increasing pain while ambulating. She performs steps x3 with single rail and SUPERVISOR INSTRUMENT MAINTENANCE from spouse Carrie and x1 with use of SPC and SUPERVISOR INSTRUMENT MAINTENANCE Carrie. Pt was left back int he chair, all needs met. Gait Assessment Gait Gait Assistance Required: Standby Assistance Distance (Feet) 80 Assistive Devices Assistive Device Gait Belt,Front Wheeled Walker Orthotic/Prosthetic Devices or Brace: No Gait Deviations General Gait Pattern Antalgic,Decreased Stride Length,Decreased Feet Clearance,Flexed Trunk,Wide Based Gait Factors Limiting Gait Function Factors Limiting Gait Function Decreased Activity Tolerance, Pain,Poor Balance Stair Climbing Assessment Evaluation Level of Assist On Stairs Minimal Assistance,1 Person Assistance Devices Stair Climbing Assistive Devices Straight Cane,Left Railing Technique/Endurance Stair Climbing Direction Ascend and Descend Stair Climbing Technique Step to Step Number of Steps Climbed 4 Comments Stair Climbing Comments See mobility comments PT-Balance Assessment Sitting Balance and Reactions Static Sitting Balance Ability Good Dynamic Sitting Balance Ability Good Standing Balance and Reactions Static Standing Balance Ability Good Dynamic Standing Balance Ability Fair Device Used RW M5 PT-IP Objective Assessments Start: 06/01/24 07:35 Freq: NEEDED Status: Active Protocol: Document 06/01/24 07:55 MB (Rec: 06/01/24 09:03 MB [id number]) Orientation Orientation/Cognition Level of Alertness Alert Orientation Name,Age,Birthday,Month,Date, Year,Situation Language Function Ability Hard of Hearing Safety Awareness Decreased Safety Awareness Comments Pt has some confusion about location today and requires cues. States she usually doesn 't come to this hospital and states [place] and then [place] Range of Motion Upper Extremity ROM Impairments Defer to OT Lower Extremity ROM Assessment Within Functional Limits Strength Lower Extremity Strength Assessment Left Impaired Knee Left knee extension 3+/5 Comments Strength Comments Pt does not tolerate MMT hips today Coordination Assessment Gross Coordination Gross Coordination Impaired Assessment Coordination Comments Slow mobility and coordination today Sensation Assessment Sensation Gross Sensation WNL Muscle Tone Muscle Tone WNL Yes M6 PT-IP Treatment Start: 06/01/24 07:35 Freq: NEEDED Status: Active Protocol: Document 06/02/24 11:01 TS (Rec: 06/02/24 11:11 TS [id number]) Physical Therapy Treatment Education Education Provided Precautions,Post-Op Packet, Safety M7 PT-IP Assessment and Plan Start: 06/01/24 07:35 Freq: NEEDED Status: Active Protocol: Document 06/02/24 11:01 TS (Rec: 06/02/24 11:11 TS [id number]) PT Summary Assessment and Plan Potential Rehabilitation Potential Good Summary Impairments Pain,Strength,Balance, Coordination,Cognition,Bed Mobility,Transfers,Gait, Activity Tolerance Progress Towards Goals Progressing Toward Goals Assessment Summary Pt is making progress with her mobility. She is CGA for STS. She progressed her gait to ~ 100'SBA. She performs steps x3 with handrail and x1 with SPC and SUPERVISOR INSTRUMENT MAINTENANCE form spouse. PT is recommending home with 24/7 assist and HHPT. Goals Bed Mobility Goal Independent Transfer Goal Independent,Front Wheeled Walker,Four Wheeled Walker Gait Goal Independent,Front Wheel Walker ,Four Wheel Walker Gait Distance 100 Other Goals Pt will ascend 1 platform step with LRAD and CGA or 2 steps with rail, LRAD and CGA to allow safe home entrance. Pt will recall 3/3 back precautions. Days to Meet Goals 3 Frequency of Treatment Frequency Of Treatment Twice a Day Treatment Plan Physical Therapy Treatment Plan Bed Mobility Training,Transfer Training,Gait Training, Therapeutic Exercise,Balance Retraining,Post Op Education, Discharge Planning,Hot or Cold Pack,Neuromuscular Re-ed, Coordination Retraining,Manual Therapy Precautions Lumbar Precautions Log Roll,No Twisting,Limit Bending,Lifting Restriction of 10 lbs,Gait Belt above Incisional Area Recommendations To Nursing Amount of Assist Needed 1 Person Assist Discharge Recommendations PT Discharge Recommendations Home with 24/7 Assist Available,Home Health Equipment Needed for Home Before FWW Discharge Transportation Needs at Discharge Private Vehicle
--- NOTE | 2024-06-02 11:47 | OT.IP.EVAL ---
Current Diagnoses Spondylolisthesis, lumbar region (05/31/24) Spinal stenosis, lumbar region with neurogenic claudication (05/31/24) Surgery Performed Operation Date: 05/31/24 08:45 Actual Procedures p L3-4, L4-5 TLIF with posterior instrumentation-Robot - Sunday Saul MD Past Medical History (Last Updated 05/22/24 @ 14:29 by Gretel Tubbs, RN) HLD (hyperlipidemia) HTN (hypertension) Spinal stenosis Wears hearing aid in both ears Surgical History (Last Updated 05/22/24 @ 14:28 by Gretel Tubbs, RN) H/O cataract extraction H/O cervical spine surgery (10/2015) H/O: hysterectomy (~1988) History of cholecystectomy History of tonsillectomy Occupational Therapy Inpatient Evaluation/Re-Eval M1 PT/OT-IP Prior Functional Status Start: 05/31/24 15:29 Freq: NEEDED Status: Active Protocol: Document 06/01/24 14:02 [facility] (Rec: 06/01/24 14:21 [facility] [id number]) Medical Review Prior Functional Status Medical History Reviewed Yes Communication I Mobility and Gait Occasional use of 4ww inside and outside per pt's . Activities of Daily Living and IADL's Pt's states having to assist with socks and IADL needs. Social History Household Members spouse Living Arrangements House Number of Floors (Floors) One Floor Number of Stairs To Enter/Railing? 2 steps with right rail going up. They has a daylight basement that she will not be using. 1 step going up without rail. Home Environment Standard Height Toilet,Walk in Shower Home Equipment Four Wheel Walker,Straight Cane,Raised Toilet Seat w/ Armrests,Shower Seat without Backrest,Hand Held Shower,Long Handled Shoe Horn,Wire Bender Additional Social History Comment Pt states he is physically capable to be able to assist pt for her needs. M2 OT-IP Current Condition Start: 05/31/24 15:29 Freq: Status: Active Protocol: Document 06/01/24 14:02 [facility] (Rec: 06/01/24 14:21 [facility] [id number]) Occupational Therapy Current Condition Current Condition Evaluation Date 06/01/24 Treatment Diagnosis S/P L3-4, L4-5 TLIF Diagnosis Onset Date 12/4/24 Post Operative Precautions Lumbar Precautions Log Roll,No Twisting,Limit Bending,Lifting Restriction of 10 lbs,Gait Belt above Incisional Area M3 OT- IP Subjective and Pain Start: 05/31/24 15:29 Freq: Status: Active Protocol: Document 06/02/24 11:49 [facility] (Rec: 06/02/24 11:57 [facility] [id number]) OT- Subjective Occupational Therapy Visit Type Type Treatment Note Visit Start Time 11:17 Visit Stop Time 11:47 Occupational Therapy Visit Comments Patient Comments Pt wanting to use the bathroom and agreed to practice more on bed mobility needs. Patient/Caregiver Goals TO go home. OT Pain Assessment Pain When Pain Assessed During Mobility Pain Present Pain Present Pain Reported Location Left hip Pain Behaviors Facial Grimacing M4 OT- IP ADL's Start: 05/31/24 15:29 Freq: Status: Active Protocol: Document 06/01/24 14:02 [facility] (Rec: 06/01/24 14:21 [facility] [id number]) OT ADL-Oral Care Comments Oral Care Comments Educated best to spit into a cup or hinge at her hips to best follow her back precautions. OT ADL-Dressing General Eval Lower Body Dressing Ability Moderate Assistance Comments OT Dressing Comments Assist to help pull the brief in the back. OT ADL-Toileting General Evaluation Toileting Ability Moderate Assistance Comments OT Toileting Comments Pt able to hinge at her hips to wipe and will need asisst after a bowel movement. Spoke of use of wipe, get a BSC , and use of pads/briefs. OT ADL-Bathing Comments OT Bathing Comments Pt will need assist and also benefit from a bath aid at home. M6 OT- IP Functional Cognition Start: 05/31/24 15:29 Freq: Status: Active Protocol: Document 06/02/24 11:49 [facility] (Rec: 06/02/24 11:57 [facility] [id number]) Cognitive Factors Limiting Selfcare Function Cognitive Ability Level of Alertness Alert Attention Span Ability Capable of Focused Attention, Capable of Sustained Attention Ability to Follow Commands Able to Follow One Step Commands Cognitive Comments Cognitive Assessment Comments Pt much more alert and better able to follow her back precautions for ADL and mobility needs. M7 OT- IP Mobility and Balance Start: 05/31/24 15:29 Freq: Status: Active Protocol: Document 06/02/24 11:49 [facility] (Rec: 06/02/24 11:57 [facility] [id number]) OT- Bed Mobility Assessment Supine to Sit Supine to Sit Assist Moderate Assistance Sit to Supine Sit to Supine Assist Moderate Assistance OT-Transfer Assessment Sit to and From Stand Sit to and from Stand Minimal Assistance Transfers Transfer Ability Standby Assistance,Contact Guard Assistance Technique Transfer Destination Bed,Chair,Toilet Comments Mobility Comments Able to practice with pt , and practicing with OT for bed mobility needs on technique. Pt's now has good understanding and awareness to assist pt for needs. Suggested if pt still having difficulty may be good to sleep in a recliner initially. Pt's able to safely assists pt for all mobility needs. OT- Balance Assessment Sitting Balance and Reactions Static Sitting Balance Ability Good Dynamic Sitting Balance Ability Good Standing Balance and Reactions Static Standing Balance Ability Good Dynamic Standing Balance Ability Good M8 OT- IP Objective Assessments Start: 05/31/24 15:29 Freq: Status: Active Protocol: Document 06/01/24 14:02 [facility] (Rec: 06/01/24 14:21 [facility] [id number]) OT Strength Upper Extremity Strength Assessment Within Functional Limits M9 OT- IP Assessment and Plan Start: 05/31/24 15:29 Freq: Status: Active Protocol: Document 06/02/24 11:49 [facility] (Rec: 06/02/24 11:57 [facility] [id number]) OT Summary Assessment and Plan Potential Rehabilitation Potential Good Analytic Complexity at Evaluation Low Summary OT Impairments Pain,Strength,Balance, Functional Mobility,Grooming, Dressing,Toileting,Bathing, Toilet Transfers,Shower Transfers,Activity Tolerance Progress Towards Goals Progressing Toward Goals Assessment Summary Pt's participated in caregiver training for toileting and mobility needs. Suggested best to use the RTS with handles at home or obtain a BSC. In addition a bed rail will be helpful for bed mobility needs. Pt's able to complete all needs for ADL and mobility with good safety. Pt to go home with 24/7 assist and home health when medically stable. Goals Self-Feeding Goal Independent Grooming Goal Independent Dressing Goal Minimal Assistance Toileting Goal Minimal Assistance Bathing Goal Minimal Assistance Toilet Transfer Goal Independent Shower Transfer Goal Standby Assistance Days to Meet Goals 5 Frequency of Treatment Other frequency 5x/week Treatment Plan OT Treatment Plan ADL Training,Functional Mobility,Patient/Family Education,Discharge Planning Discharge Recommendations OT Discharge Recommendations Home with 24/7 Assist Available,Home Health Transportation Needs at Discharge Private Vehicle
--- NOTE | 2024-06-02 13:19 | PT-IP ANOTE ---
PT checked on pt but is currently eating. PT may attempt to see pt later this afternoon.
--- NOTE | 2024-06-02 15:51 | CM.DPNOTE ---
DCP Note MAIL COURIER reviewed EMR. per ortho PA, want to keep pt another night, dc Wednesday. MAIL COURIER updated Ericka from [facility]. Confirm able to accept and need f2f/order/dc sum. MAIL COURIER met with pt and spouse in room. Reviewed plan to dc home with [facility] tomorrow, provided brochure. in agreement with plan. MAIL COURIER answered questionss to best of ability. Deny other CM needs at this time. P: NORA Sat 06/03 with [facility]. Need to send f2f/order/dc sum when available. CM team will continue to follow as needed CLYDE Joseph
--- NOTE | 2024-06-02 16:30 | PT.IPTN ---
Current Diagnoses Spondylolisthesis, lumbar region (05/31/24) Spinal stenosis, lumbar region with neurogenic claudication (05/31/24) Surgery Performed Operation Date: 05/31/24 08:45 Actual Procedures p L3-4, L4-5 TLIF with posterior instrumentation-Robot - Sunday Saul MD Physical Therapy Treatment Note M2 PT-IP Current Condition Start: 06/01/24 07:35 Freq: NEEDED Status: Active Protocol: Document 06/01/24 07:55 MB (Rec: 06/01/24 09:03 MB [id number]) Physical Therapy Current Condition Current Condition Evaluation Date 06/01/24 Treatment Diagnosis L3-5 TLIF M3 PT-IP Subjective Start: 06/01/24 07:35 Freq: NEEDED Status: Active Protocol: Document 06/02/24 16:30 AB (Rec: 06/02/24 17:33 AB [id number]) Subjective Physical Therapy Visit Type Type Treatment Note Visit Start Time 16:30 Visit Stop Time 17:05 Number of UNDERLAY STITCHER Visits 0 Physical Therapy Visit Comments Patient Comments agreeable to do PT Therapy Pain Assessment Pain When Pain Assessed During Mobility Pain Present Pain Present Pain Reported Location low back Scale Used pain scale not stated M4 PT-IP Mobility and Gait Start: 06/01/24 07:35 Freq: NEEDED Status: Active Protocol: Document 06/02/24 16:30 AB (Rec: 06/02/24 17:33 AB [id number]) PT-Bed Mobility Assessment Rolling Type of Rolling Log Rolling Level of Assist Maximal Assistance Supine to Sit Supine to Sit Maximum Assistance,1 Person Assistance PT-Transfer Assessment Sit to and From Stand Sit to and from Stand Minimal Assistance,Moderate Assistance,1 Person Assistance ,Use of Upper Extremities Equipment Transfer Assistive Device Gait Belt,Front Wheeled Walker Orthotic/Prosthetic Devices or Brace: No Transfers Transfer Destination Bed,Toilet Transfer Technique ambulated Transfer Ability Level of Assist Contact Guard Assistance,1 Person Assistance,Use of Upper Extremities Comments Mobility Comments pt supine in bed. spouse in room. reviewed back precautions. educated pt on back precautions. able to recall precautions after repetitions. completed log roll supine to sit max A and max cues. able to sit on EOB SBA. spouse stated that he knows how to assist pt and that caregiver training was done this morning. spouse was able to put saftey belt on pt . pt completed sit to stand min to mod A and max cues and ambulated in room using FWW ~ 40 ft CGA. pt sat on chair. pt requested to use the toilet . completed sit to stand mod A and ambulated to the toilet using fWW CGA. assisted with brief management. pt completed sit to stand from the toilet using grab bar mod A. pt ambulated to the chair using FWW CGA. positioned pt on the chair. call light and table placed within reach. chair alarm on. Gait Assessment Gait Gait Assistance Required: Contact Guard Assist Distance (Feet) 40 Able to Maintain Weight Bearing Status Yes During Gait Assistive Devices Assistive Device Gait Belt,Front Wheeled Walker Orthotic/Prosthetic Devices or Brace: No Gait Deviations General Gait Pattern Decreased Stride Length, Decreased Feet Clearance,Step- to Gait Factors Limiting Gait Function Factors Limiting Gait Function Decreased Activity Tolerance, Decreased Strength,Limited Range of Motion,Pain,Poor Balance,Poor Safety Awareness M5 PT-IP Objective Assessments Start: 06/01/24 07:35 Freq: NEEDED Status: Active Protocol: Document 06/01/24 07:55 MB (Rec: 06/01/24 09:03 MB [id number]) Orientation Orientation/Cognition Level of Alertness Alert Orientation Name,Age,Birthday,Month,Date, Year,Situation Language Function Ability Hard of Hearing Safety Awareness Decreased Safety Awareness Comments Pt has some confusion about location today and requires cues. States she usually doesn 't come to this hospital and states [place] then [place] Gross Range of Motion Upper Extremity ROM Impairments Defer to OT Lower Extremity ROM Assessment Within Functional Limits Strength Lower Extremity Strength Assessment Left Impaired Knee Left knee extension 3+/5 Comments Strength Comments Pt does not tolerate MMT hips today Coordination Assessment Gross Coordination Gross Coordination Impaired Assessment Coordination Comments Slow mobility and coordination today Sensation Assessment Sensation Gross Sensation WNL Muscle Tone Muscle Tone WNL Yes M6 PT-IP Treatment Start: 06/01/24 07:35 Freq: NEEDED Status: Active Protocol: Document 06/02/24 16:30 AB (Rec: 06/02/24 17:33 AB [id number]) Physical Therapy Treatment Education Education Provided Precautions,Safety M7 PT-IP Assessment and Plan Start: 06/01/24 07:35 Freq: NEEDED Status: Active Protocol: Document 06/02/24 16:30 AB (Rec: 06/02/24 17:33 AB [id number]) PT Summary Assessment and Plan Potential Rehabilitation Potential Fair Summary Impairments Pain,ROM,Strength,Balance, Coordination,Sensation,Tone, Cognition,Bed Mobility, Transfers,Gait,Activity Tolerance Progress Towards Goals Slow Progress due to Activity Tolerance Assessment Summary pt requiring min to mod A for sit to stand and CGA for ambulation using FWW. spouse was able to assist pt . pt plans to go home and spouse to assist. pt may go home when medically stable. Goals Bed Mobility Goal Independent Transfer Goal Independent,Front Wheeled Walker,Four Wheeled Walker Gait Goal Independent,Front Wheel Walker ,Four Wheel Walker Gait Distance 100 Other Goals Pt will ascend 1 platform step with LRAD and CGA or 2 steps with rail, LRAD and CGA to allow safe home entrance. Pt will recall 3/3 back precautions. Days to Meet Goals 5 Frequency of Treatment Frequency Of Treatment Twice a Day Treatment Plan Physical Therapy Treatment Plan Bed Mobility Training,Transfer Training,Gait Training, Therapeutic Exercise,Balance Retraining,Post Op Education, Discharge Planning,Hot or Cold Pack,Neuromuscular Re-ed, Coordination Retraining,Manual Therapy Precautions Lumbar Precautions Log Roll,No Twisting,Limit Bending,Lifting Restriction of 10 lbs,Gait Belt above Incisional Area Recommendations To Nursing Amount of Assist Needed 1 Person Assist Discharge Recommendations PT Discharge Recommendations Home with 18/01 Assist Available,Home Health Equipment Needed for Home Before FWW Discharge Transportation Needs at Discharge Private Vehicle
--- NOTE | 2024-06-02 19:04 | PC.NURSE ---
06/02/2024 RN assisted pt up to bathroom utilizing walker and gait belt. Pt tolerated well and proceeded to empty bladder and bowels. RN assisted pt w/ tara care and ambulated back to bed w/ pt. PT now comfortable in bed.
[2024-06-02] MEDS: SENNOSIDES 8.6 MG TABLET 17.2 MG PO (20:07)
[2024-06-03] MEDS: ACETAMINOPHEN 325 MG TABLET 650 MG PO ×2 (00:06→07:43)
[2024-06-03] MEDS: OXYCODONE IR 5 MG TABLET PO ×3 (00:06→10:53)
[2024-06-03 08:00] VITALS: BP 159/61; PULSE 79; RESP 15; TEMP 36.7; O2SAT 91
[2024-06-03 08:45] VITALS: BP 159/61; PULSE 79
[2024-06-03] MEDS: atenoloL 25 MG TABLET PO (08:45)
[2024-06-03] MEDS: allopurinoL 100 MG TABLET PO (08:45)
[2024-06-03] MEDS: LOSARTAN 50 MG TABLET PO (08:45)
[2024-06-03] MEDS: ATORVASTATIN 20 MG TABLET 40 MG PO (08:45)
--- NOTE | 2024-06-03 09:06 | P.DS_ITS ---
History of Present Illness History of Present Illness Date Patient Seen: 06/03/24 Time Patient Seen: 09:07 Chief complaint: Lumbar TLIF *OPB* Narrative: Patient has been having chronic back pain and worsening lumbar radiculopathy. Patient was found to have L3-4 L4-5 anterolisthesis with spinal stenosis correlating with patient's symptoms. Patient failed multiple conservative management with worsening pain weakness and numbness in her lower extremity. Patient has been having difficulty performing activity of daily living. After discussing risks benefits of treatment options, patient elected proceed with surgery. Discharge Providers Provider Discharge Date: 06/03/24 Consults: 05/31/24 13:39 Consult to Occupational Therapy Evaluate & Treat Comment: Physician Instructions: Evaluate and treat Consult to Physical Therapy Evaluate & Treat Comment: Physician Instructions: Evaluate and Treat 06/01/24 15:26 Consult to Home Health Routine Comment: TLIF Reason For Exam: Set up HH RN/PT/OT/ENDORSEMENT CLERK for dc to home when stable. Discharge provider: Edwardo Aviles PA-C Summary Hospital Course Discharge Diagnosis: 1. L3-4, L4-5 spondylolisthesis 2. L3-4, L4-5 spinal stenosis with radiculopathy Hospital Course: Procedure: 1. L3-4, L4-5 Postero-lateral and posterior interbody fusion 2. L3-4, L4-5 interbody cage placement. 3. L3-4, L4-5 decompressive laminectomy with bilateral facetecomies 4. L3-4, L4-5 Posterior segmental instrumentation 5. Perkins of bone marrow from iliac crest 6. Utilization of microsurgical technique and operating microscope 7. Utilization of robotic assisted navigation 8. Excisional biopsy of the right L3-4 synovial cyst Same procedure as scheduled: Yes Surgeon: Sunday Saul Patient Assistant: Deepa Pritchard Click Yes if Unassisted: No Anesthesia Type: General Operative Notes Closure Type: primary Specimen(s): other (Right L3-4 facet cyst) Prosthetic devices, grafts, tissues, transplants, or devices: Globus CREO MIS screws, Rise cages Applied: catheter Estimated Blood Loss (mL): 50 Blood products transfused: none Status at Discharge Cognitive/behavioral status at discharge: oriented Functional status at discharge: uses cane/walker Overall status at discharge: patient is back to baseline Time Spent with Patient Time spent: Less than 30 minutes Exam Vital Signs (past 8 hours): - 06/03/24 08:00 06/03/24 08:13 06/03/24 08:45 Temperature 98.1 F Pulse Rate 79 79 Respiratory Rate 15 Blood Pressure 159/61 H 159/61 H Pulse Oximetry 91 Oxygen Delivery Method Room Air Oxygen Flow Rate 0 Fraction of Inspired Oxygen 93 Oxygen Delivery Method Room Air Oxygen Flow Rate 0 Narrative Exam Narrative: Patient is found sitting in her chair comfortably. She is in much better overall condition compared to yesterday. She feels more clear-headed and no longer has shortness of breath. She has been able to work with physical therapy yesterday and able to ambulate in with a walker and has improved upper extremity strength. Her has noticed a significant difference. Both feel comfortable to be discharged home with home health. 5/5 strength in hip flexors, quadriceps, hamstrings, DF, PF, EHL bilaterally. Sensation to light touch intact throughout BLE. Calves soft, compressible, nontender. ?Dressing placed intraoperatively CDI. Resp Effort & Inspection: normal respiratory effort and able to speak in complete sentences Objective Labs 06/01/24 05:31 [facility] Medical History (Updated 05/22/24 @ 14:29 by Gretel Tubbs RN) Wears hearing aid in both ears HTN (hypertension) HLD (hyperlipidemia) Spinal stenosis Surgical History (Updated 05/22/24 @ 14:28 by Gretel Tubbs RN) H/O cataract extraction History of tonsillectomy History of cholecystectomy H/O: hysterectomy (~1988) H/O cervical spine surgery (10/2015) Social History household members: spouse Smoking Status: Former smoker alcohol intake: current Discharge Assessment & Plan Assessment and Plan Assessment: Status post TLIF Plan of Treatment: Discharged to home with home health. Patient takes has been taking baseline tramadol 75 mg daily in divided doses for the past few months. May continue with that prescription and wean down as needed. Also recommend acetaminophen 500 mg every 4 hours for baseline pain relief. Patient is prescribed oxycodone 5 mg q.4 hours PRN for any breakthrough pain. Ambulate with assistive devices. No bending twisting at the waist no lifting more than 10 lb. Follow up in 2 weeks in clinic for wound check. Discharge Plan Discharge Plan Patient Disposition: Home Discharge orders & Medications Discharge Orders: Discharge (Order); Ordered 06/03/24 Ordered By: Edwardo B Stefan Prescriptions: New oxycodone 5 mg Tablet 5 mg PO Q4H PRN (Reason: Pain, Moderate (4-6)) Qty: 40 0RF Continued atorvastatin 40 mg tablet 40 mg PO DAILY atenolol 25 mg tablet 25 mg PO DAILY allopurinol 100 mg tablet 100 mg PO DAILY tramadol 50 mg tablet 25 mg PO TID gabapentin 300 mg capsule 300 mg PO PRN PRN (Reason: back pain.) hydrochlorothiazide 25 mg tablet 25 mg PO DAILY irbesartan 150 mg tablet 150 mg PO DAILY acetaminophen [Tylenol Extra Strength] 500 mg Tablet 500 mg PO DAILY Follow up/Referrals: Sunday Saul MD [Physician] - 06/13/24 3:40 pm ([facility] office in [place]) Diet/Activity/Treatments Diet: Diet as Tolerated Activity: No deep bending or twisting at the waist. No lifting more than 10 pounds. Skin/Wound/Dressing Care Report to your healthcare provider any signs of infection, such as:: chills, fever, night sweats, unusual drainage and unusual redness Dressing: May shower. Keep dressings as dry as possible. If dressings become wet or dirty, may remove and replace with clean, dry gauze. No bathing or otherwise soaking incisions. Do not apply any creams, lotions, or ointments to incisions. Visit Report/Discharge Packet Instructions: DI for Prescription Opioid Use, DI for Transforaminal Lumbar Interbody Fusion Stand Alone Forms: Patient Portal/API, Surgery Discharge Discharge Data Attending Provider: Sunday Saul Quality VTE Deep Vein Thrombosis/Pulmonary Embolism Present on Admission: No
--- NOTE | 2024-06-03 09:16 | CM.DPNOTE ---
DCP Note VEST BUSHELER reviewed EMR. Per chart, pt cleared to dc home today with HH. order placed. VEST BUSHELER emailed Ericka at [facility] f2f, HH order, and available HH draft. No further CM needs identified at this time. P: Pt to dc home with spouse support and [facility] to follow. CM team will continue to follow as needed CLYDE Joseph
--- NOTE | 2024-06-03 09:20 | PT.IPTN ---
Current Diagnoses Spondylolisthesis, lumbar region (05/31/24) Spinal stenosis, lumbar region with neurogenic claudication (05/31/24) Surgery Performed Operation Date: 05/31/24 08:45 Actual Procedures p L3-4, L4-5 TLIF with posterior instrumentation-Robot - Sunday Saul MD Physical Therapy Treatment Note M2 PT-IP Current Condition Start: 06/01/24 07:35 Freq: NEEDED Status: Active Protocol: Document 06/01/24 07:55 MB (Rec: 06/01/24 09:03 MB [id number]) Physical Therapy Current Condition Current Condition Evaluation Date 06/01/24 Treatment Diagnosis L3-5 TLIF M3 PT-IP Subjective Start: 06/01/24 07:35 Freq: NEEDED Status: Active Protocol: Document 06/03/24 09:39 TS (Rec: 06/03/24 09:44 TS [id number]) Subjective Physical Therapy Visit Type Type Treatment Note Visit Start Time 09:20 Visit Stop Time 09:35 Notes Spouse present Number of [employer] Visits 1 Physical Therapy Visit Comments Patient Comments Pt found resting in the chair, reprots feeling better, she decliend stair and bed mobility this session. Therapy Pain Assessment Pain When Pain Assessed During Mobility Pain Present Pain Present Pain Reported M4 PT-IP Mobility and Gait Start: 06/01/24 07:35 Freq: NEEDED Status: Active Protocol: Document 06/03/24 09:39 TS (Rec: 06/03/24 09:44 TS [id number]) PT-Transfer Assessment Sit to and From Stand Sit to and from Stand Minimal Assistance,1 Person Assistance,Use of Upper Extremities Equipment Transfer Assistive Device Gait Belt,Front Wheeled Walker Orthotic/Prosthetic Devices or Brace: No Comments Mobility Comments STS with FWW Carrie for balance. She ambulates ~80'SBA with FWW, reports pain in her RLE. Pt ambulates back to the room. Pt was left in the chair, PT will dispensed FWW. Gait Assessment Gait Gait Assistance Required: Standby Assistance Distance (Feet) 80 Able to Maintain Weight Bearing Status Yes During Gait Assistive Devices Assistive Device Gait Belt,Front Wheeled Walker Orthotic/Prosthetic Devices or Brace: No Gait Deviations General Gait Pattern Decreased Stride Length, Decreased Feet Clearance,Step- to Gait Factors Limiting Gait Function Factors Limiting Gait Function Decreased Activity Tolerance, Decreased Strength,Limited Range of Motion,Pain,Poor Balance,Poor Safety Awareness M5 PT-IP Objective Assessments Start: 06/01/24 07:35 Freq: NEEDED Status: Active Protocol: Document 06/01/24 07:55 MB (Rec: 06/01/24 09:03 MB [id number]) Orientation Orientation/Cognition Level of Alertness Alert Orientation Name,Age,Birthday,Month,Date, Year,Situation Language Function Ability Hard of Hearing Safety Awareness Decreased Safety Awareness Comments Pt has some confusion about location today and requires cues. States she usually doesn 't come to this hospital and states [place] then [place] Gross Range of Motion Upper Extremity ROM Impairments Defer to OT Lower Extremity ROM Assessment Within Functional Limits Strength Lower Extremity Strength Assessment Left Impaired Knee Left knee extension 3+/5 Comments Strength Comments Pt does not tolerate MMT hips today Coordination Assessment Gross Coordination Gross Coordination Impaired Assessment Coordination Comments Slow mobility and coordination today Sensation Assessment Sensation Gross Sensation WNL Muscle Tone Muscle Tone WNL Yes M6 PT-IP Treatment Start: 06/01/24 07:35 Freq: NEEDED Status: Active Protocol: Document 06/03/24 09:39 TS (Rec: 06/03/24 09:44 TS [id number]) Physical Therapy Treatment Education Education Provided Precautions,Safety M7 PT-IP Assessment and Plan Start: 06/01/24 07:35 Freq: NEEDED Status: Active Protocol: Document 06/03/24 09:39 TS (Rec: 06/03/24 09:44 TS [id number]) PT Summary Assessment and Plan Potential Rehabilitation Potential Fair Summary Impairments Pain,ROM,Strength,Balance, Coordination,Sensation,Tone, Cognition,Bed Mobility, Transfers,Gait,Activity Tolerance Progress Towards Goals Progressing Toward Goals Assessment Summary Pt is making some progresss with her mobility. She is Carrie for STS with use of FWW. She ambulates ~80'SBA with FWW. Pt declined stair and bed mobility training. PT is recommending home with 18/01 assist. Goals Bed Mobility Goal Independent Transfer Goal Independent,Front Wheeled Walker,Four Wheeled Walker Gait Goal Independent,Front Wheel Walker ,Four Wheel Walker Gait Distance 100 Other Goals Pt will ascend 1 platform step with LRAD and CGA or 2 steps with rail, LRAD and CGA to allow safe home entrance. Pt will recall 3/3 back precautions. Days to Meet Goals 5 Frequency of Treatment Frequency Of Treatment Twice a Day Treatment Plan Physical Therapy Treatment Plan Bed Mobility Training,Transfer Training,Gait Training, Therapeutic Exercise,Balance Retraining,Post Op Education, Discharge Planning,Hot or Cold Pack,Neuromuscular Re-ed, Coordination Retraining,Manual Therapy Precautions Lumbar Precautions Log Roll,No Twisting,Limit Bending,Lifting Restriction of 10 lbs,Gait Belt above Incisional Area Recommendations To Nursing Amount of Assist Needed 1 Person Assist Discharge Recommendations PT Discharge Recommendations Home with 18/01 Assist Available,Home Health Equipment Needed for Home Before FWW Discharge Transportation Needs at Discharge Private Vehicle
== END 2024-06-03 12:06 | disposition home or self-care (01) ==
LOC: OR 07:27 → AC 07:27
PROVIDERS: Anesthesiology; Referring Provider Orthopaedic Surgery Orthopaedic Surgery of the Spine; Visit Provider Orthopaedic Surgery Orthopaedic Surgery of the Spine
PROC: (CPT 22633; principal; 2024-05-31 08:45)
DX: M48.062 Spinal stenosis, lumbar region with neurogenic claudication (principal); M43.16 Spondylolisthesis, lumbar region; M54.16 Radiculopathy, lumbar region
CPT/HCPCS: 22633; 22853 ×2; 22634; 22842; 63053; 63052; 20939; 36415; 72100; 76000; 85014; 85018; 85027; 97161; 97165; 97530; 97535; A9270; C1713; C9290; J0171; J0330; J0690; J1100; J1171; J2060; J2405; J2704; J3010